=== PATIENT | male | born 1975 | race Caucasian/White ===

== ENCOUNTER 2016-10-17 13:27 | Inpatient (IN) | payer OTHER ==
[2016-10-17] VITALS (19 sets, daily range): BP systolic 102–144; BP diastolic 54–87
[~2016-10-17] VITALS: Ht 188 cm; Wt 117.9 kg
--- NOTE | ~2016-10-17 | EEG ---
[facility] [place] [address] ELECTROENCEPHALOGRAM Name: SHEFALI HOLGUIN Room #: 251-P [facility] IN M.R.#: [id number] Admission: 10/17/16 Attend Phys: Abdullahi Morgan MD Discharge: 10/20/16 Date of : 73 Report #: [id number] THIS REPORT FOR: //name// CC: SAÚL physician/PCP Abdullahi Morgan DATE OF SERVICE: 10/18/2016 This patient is being evaluated for the possibility of seizure. EEG was done by placing the electrodes by standard 10-20 system of electrode placement. Both referential and sequential montages were used for recording. Background activity in this patient's EEG is about 8 Hz and 15 microvolts. It is a symmetrical activity. The patient went to sleep and that is associated with bilaterally symmetrical sleep spindle and vertex sharp waves. Throughout the record, no active epileptiform activity was noticed. IMPRESSION: This patient's EEG is intermixed with moderate amount of slowing on both sides. That is a nonspecific abnormality, which can occur with encephalopathy, dementia, effect of psychotropic medication, etc. No active epileptiform activity was noticed during this record. Thank you very much for this referral. <ELECTRONICALLY SIGNED> By: Mayank Arellano MD 10/21/16 2054 0817 0825 Mayank Arellano MD /nt
--- NOTE | ~2016-10-17 | S ---
[facility] [address] [place] [address] SURGICAL PATH RPT PROCEDURE Name: PIERRE HOLGUIN Room #: 251-P DIS IN M.R.#: [id number] Admission: 10/17/16 Date of : 73 Discharge: 10/20/16 Report #: [id number] Path Case #: [id number] PATHOLOGY REPORT COLLECTION DATE: 10/18/2016 RECEIVED DATE: 10/18/2016 SUBMITTING PHYS: Dr. Godfrey Liriano OTHER PHYS: Dr. Eddie Fernando ADDENDUM REPORT (Order Date: 10/20/2016 09:07) ADDENDUM COMMENT: This addendum is issued to document well controlled GMS special stain performed on block B1 which shows no definite fungal elements. The originally rendered diagnosis remains unchanged. (IUV:all; d/t: 10/20/2016) Professional services performed by [facility] at [facility] [address], [place] [address] Technical services performed by [facility] at [address] [place] [address], [address] [place] [address]. ELECTRONICALLY SIGNED BY: Kelly Lyons M.D. DATE/TIME:10/20/2016 09:27 SPECIMEN(S) RECEIVED: A.Gastritis bx B.Esophageal bx * * * * * * * * * * * * FINAL DIAGNOSIS: A. Gastric mucosa, gastritis, endoscopic biopsy: - Moderate reactive gastropathy. - Negative for intestinal metaplasia or atrophy. - Negative for Helicobacter pylori. B. Gastroesophageal mucosa, esophagus, endoscopic biopsy: - Moderate acute esophagitis with fragments of fibrinopurulent material consistent with ulceration. - Gastric-type mucosa with moderate acute and chronic inflammation. - Negative for intestinal metaplasia or dysplasia. COMMENT: A GMS fungal special stain is performed on block B, and the results of this will be reported in an addendum to follow. (IUV:mgr; d/t: 10/19/16) [facility] [address] [place] [address] SURGICAL PATH RPT PROCEDURE Name: PIERRE HOLGUIN Room #: 251-P [facility] IN M.R.#: [id number] Admission: 10/17/16 Date of : 73 Discharge: 10/20/16 Report #: [id number] Path Case #: [id number] PATHOLOGIST: Kelly Lyons M.D. REPORT ELECTRONICALLY SIGNED BY: Kelly Lyons M.D. DATE/TIME: 10/19/2016 15:02 * * * * * * * * * * * * GROSS PATHOLOGY: A. Received in formalin labeled "Pierre Barksdale and gastritis," are 5 segments of vasquez soft tissue measuring 1.2 x 0.4 x 0.3 cm in aggregate dimensions and ranging from 0.2 to 0.5 cm in maximum dimension. The specimen is submitted entirely in cassette A1. B. Received in formalin labeled "Pierre Barksdale and esophagus bx," are 3 segments of vasquez soft tissue measuring 1.2 x 0.2 x 0.2 cm in aggregate dimensions and ranging from 0.2 to 0.7 cm in maximum dimension. The specimen is submitted entirely in cassette B1. (TTL; 10/18/2016) CLINICAL HISTORY: Gastritis, esophagitis INITIAL CPT CODE(S): A; 70899, 17953 B; 35982, 26589 Professional services performed by [facility] at [place] [address], [place] [address] Technical services performed by [facility] at [address] [place] [address], [address] [address]. [facility] [address] [place] [address] PHONE: [phone] DIRECTOR: Black Avilez M.D. * * * END OF REPORT * * *
--- NOTE | ~2016-10-17 | HC ---
[facility] [place] [address] CONSULTATION Name: SHEFALI HOLGUIN Room #: 251-P ADM IN M.R.#: [id number] Admission: 10/17/16 Attend Phys: Abdullahi Morgan MD Discharge: Date of : 73 Report #: [id number] THIS REPORT FOR: //name// CC: SAÚL physician/PCP Abdullahi Morgan DATE OF SERVICE: 10/18/2016 HISTORY OF PRESENT ILLNESS: This gentleman was admitted with significant alcohol intoxication. He had recently moved here from [place] and away from his support system, fell under increased stress and unfortunately relapsed with alcohol. He has a lot of regret over this now. He had made some suicidal statements earlier, but he notes he was just feeling a wave of hopelessness at that time and denies that he has any intent or plan to harm himself. He is hopeful that he has not blown things with the job opportunity. He endorses that he had a couple of years sobriety prior to this relapse, which lasted approximately 3 days. He does have a history of complicated withdrawal including seizures. PAST PSYCHIATRIC HISTORY: The patient has been under psychiatric care in the past. About a year ago, he was started on the combination of gabapentin, sertraline and lithium. He notes it ended up being a little bit too strong of a cocktail "I was lying in bed and drooling on myself." He denies significant tremor on the lithium. He certainly has periods of severe depression and notes "suddenly the bottom can drop out." I had some difficulty eliciting specific history of manic episodes. FAMILY HISTORY: There is depression and mood disorder in the family. It sounds like father is a social drinker, but not alcohol dependent. PAST MEDICAL HISTORY: Increased liver transaminases, hematemesis and esophagitis. ALLERGIES: CODEINE. SOCIAL HISTORY: Long history of alcoholism, has worked in the automotive motorcycle industry in the past. He notes that because of his alcohol use "I lost everything." Also seems there was a breakup and girlfriend left him for a friend. Over the last couple of years, he had been sober and participated in [facility] as well as some other ministry approaches to sobriety. 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 He notes that he felt his sobriety was fairly strong that it was a good point to take a break from the [place] [facility] ministry and focus on more of a carrier "so I can also rebuild my life financially." MENTAL STATUS EXAM: male, multiple tattoos, depressed mood, [facility] [address] [place] [address] CONSULTATION Name: SHEFALI HOLGUIN Room #: 251-P [facility] IN M.R.#: [id number] Admission: 10/17/16 Attend Phys: Abdullahi Morgan MD Discharge: Date of : 73 Report #: [id number] restricted affect, normal spontaneous speech, he is articulate, no formal thought disorder, no hallucinations, no delusions, no suicidal intent or plan and no homicidal ideation. Insight and judgment fair. DIAGNOSES: AXIS I: Major depressive disorder, recurrent, severe, rule out bipolar affective disorder. Alcohol use disorder. AXIS II: Deferred. AXIS III: Elevated liver transaminases and hematemesis. AXIS IV: Moderately severe. AXIS V: 40. RECOMMENDATIONS: I am going to restart sertraline and gabapentin. He should continue the alcohol detoxification with lorazepam, provided supportive therapy and substance abuse counseling. He is going to try to reconnect with his friends in [facility]. At this point, he is motivated to try to stay in the [facility] and follow forward the initial plan. <ELECTRONICALLY SIGNED> By: Dipesh Bryant MD 10/19/16 1253 1348 1543 Dipesh Bryant MD /nt
--- NOTE | ~2016-10-17 | P ---
[facility] [place] [address] PROCEDURE REPORT Name: HOLGUINSHEFALI Room #: 251-P [facility] IN M.R.#: [id number] Admission: 10/17/16 Attend Phys: Abdullahi Morgan MD Discharge: Date of : 73 Report #: [id number] THIS REPORT FOR: //name// CC: SAÚL physician/PCP Abdullahi Morgan DATE OF SERVICE: 10/18/2016 BRIEF HISTORY: The patient is a 41-year-old male with a known history of alcohol abuse and alcoholism who had a recent relapse who presented with a markedly elevated alcohol level. He has had nausea and vomiting. He also had hematemesis, but he has not had bloody stools. In addition, he complains of severe upper abdominal pain. He has not been noted to have liver disease in the past per his report, he has not been noted to have cirrhosis. PREOPERATIVE DIAGNOSES: Hematemesis, abdominal pain, and alcohol abuse. POSTOPERATIVE DIAGNOSES: 1. Severe grade D erosive esophagitis. 2. Small hiatus hernia. 3. Diffuse erythematous gastritis, nonbleeding. MEDICATIONS: Deep sedation with propofol per anesthesia. SPECIMENS: 1. Biopsies of gastritis. 2. Biopsies esophagitis. ESTIMATED BLOOD LOSS: 3 mL. PROCEDURE: EGD with biopsy. FINDINGS: Prior to propofol sedation, procedure of upper endoscopy discussed with the patient, all potential risks, benefits, and complications. He indicates he understands and desires to proceed. With the patient in left lateral decubitus position, Fuji video endoscope was inserted in the cervical esophagus under direct vision without difficulty. Examination of this organ through its entire length revealed severe esophagitis involving the entire circumference of the distal esophagus. However, there was no blood or evidence of active bleeding. As best I could see, I did not find evidence of esophageal varices. A definite stricture was not seen, although the entire circumference of the GE junction was . Intermittently, a small hiatus hernia was seen. The pylorus, duodenal bulb and postbulbar sweep were inspected and he is noted to have some erythema, but no ulcers, erosions, or blood. Upon retroflexion, no mass lesions were seen. Biopsies obtained to [address] [address] PROCEDURE REPORT Name: SHEFALI HOLGUIN Room #: 251-P [facility] IN ..#: [id number] Admission: 10/17/16 Attend Phys: Abdullahi Morgan MD Discharge: Date of : 73 Report #: [id number] evaluate for H. pylori. The pylorus, duodenal bulb and postbulbar sweep were inspected and noted to be within normal limits. At that point, the scope was slowly withdrawn and careful circumferential views confirmed the above findings. The patient tolerated the procedure well. DISPOSITION: The patient with alcohol abuse who had a recent relapse. He has severe esophagitis likely in part related to vomiting. He also may have ongoing reflux disease, which has not been recognized. We will place him on twice daily PPI. Also, sucralfate suspension. Ultrasound earlier today revealed fatty liver. Again, varices were not seen on this examination. He does have a mild microcytosis. Iron studies are pending. If there is evidence of iron deficiency anemia, colonoscopy would be a consideration as well. <ELECTRONICALLY SIGNED> By: Godfrey Liriano MD 10/20/16 1225 1006 1054 Godfrey Liriano MD /nt
--- NOTE | ~2016-10-17 | D ---
[facility] [place] [address] DISCHARGE SUMMARY Name: SHEFALI HOLGUIN Room #: 251-P ADM IN M.R.#: [id number] Admission: 10/17/16 Attend Phys: Abdullahi Morgan MD Discharge: Date of : 73 Report #: [id number] THIS REPORT FOR: //name// CC: SAÚL physician/PCP Abdullahi Morgan DATE OF SERVICE: 10/19/2016 After coyp-jy-ayne encounter, I did see the patient and examined him on the day of discharge, 10/19/2016. DISCHARGE DIAGNOSES: 1. Alcohol intoxication. 2. Increased liver function tests. 3. Alcoholic pancreatitis. 4. Hematemesis, status post esophagogastroduodenoscopy. 5. Grade D esophagitis. 6. Hiatal hernia. 7. Gastritis. 8. History of seizure withdrawal. 9. Hypokalemia, resolved. 10. Abdominal pain, resolved. 11. Anxiety. DISCHARGE MEDICATIONS: See discharge summary. HOSPITAL COURSE: The patient was admitted to the hospital secondary to abdominal pain. He was in alcoholic intoxication at that point. He was complaining of abdominal pain, nausea, vomiting and bloody vomiting. GI was consulted and also a consultation for Psychiatry was put in. The patient was thought to be suicidal, but he was cleared by Psychiatry and only diagnosis was major depressive disorder and bipolar. He underwent EGD by GI, and they discovered grade D esophagitis, gastritis and hiatal hernia, and started him on PPI. In the same time, Psychiatry cleared him today for discharge, and they recommended him to be on sertraline and gabapentin. The patient is stable and he is leaving on the decided medicines. <ELECTRONICALLY SIGNED> By: Sylvia Ambrose MD 10/20/16 1709 1545 1707 Sylvia Ambrose MD /nt
--- NOTE | ~2016-10-17 | EKG ---
[place] [address] [facility] [place] [address] ELECTROCARDIOGRAM REPORT Name: HOLGUINSHEFALI Room #: 170-8 ADM IN M.R.#: [id number] Admission: 10/17/16 Attend Phys: Abdullahi Morgan MD Discharge: Date of : 73 Report #: [id number] THIS REPORT FOR: //name// [facility] ED Test Date: 2016-10-17 Test Time: 13:37:14 Pat Name: SHEFALI HOLGUIN Department: Room: 170 Gender: M Ballistician: JOHN : 1975 Requested By: Nelia Paredes Order Number: [id number] MD: Bruce Ellis Measurements Intervals [place] Rate: 95 P: 56 [place]: 150 QRS: 16 QRSD: 90 T: 30 QT: 347 QTc: 436 Interpretive Statements Sinus rhythm Probable left atrial enlargement ST elev, probable normal early repol pattern No previous ECG available for comparison Electronically Signed On 10-17-2016 15:19:48 WOOD WEB WEAVING MACHINE OPERATOR by Bruce Ellis [email or web address] <ELECTRONICALLY SIGNED> By: Bruce Ellis MD 10/17/16 1519 36 36 Bruce Ellis MD /ION
[2016-10-17 13:54] LABS: ABSOLUTE NEUTROPHILS 4.7 thou/uL (1.4-8.2); BASOPHILS 0.3 % (0.0-2.0); EOSINOPHILS 0.1 % (0.0-3.0); HEMATOCRIT 39.3 % (42.0-52.0); HEMOGLOBIN 13.4 gm/dL (14.0-18.0); LYMPHOCYTES 17.2 % (24.0-44.0); MCH 26.8 pg (26.0-34.0); MCV 78.8 fL (80.0-100.0); MONOCYTES 10.3 % (1.0-8.0); PLATELET COUNT 247 thou/uL (150-400); POLYS 72.1 % (36.0-66.0); RBC 4.98 mil/uL (4.50-6.00); RDW 15.4 % (10.5-14.5); WBC 6.6 thou/uL (4.0-11.0)
[2016-10-17 13:55] LABS: MANUAL DIFF NO
[2016-10-17 14:06] LABS: ANION GAP 9 mmol/L (7-16); APTT 25.7 Seconds (24.5-32.8); BUN 5 mg/dL (7-18); CALCIUM 8.2 mg/dL (8.5-10.1); CHLORIDE 96 mmol/L (98-107); CO2 29 mmol/L (21-32); CREATININE 0.9 mg/dL (0.6-1.3); GLUCOSE 114 mg/dL (70-99); POTASSIUM 4.4 mmol/L (3.5-5.1); SODIUM 134 mmol/L (136-145)
[2016-10-17 14:12] LABS: ALKALINE PHOSPHATASE 77 U/L (46-116); SGOT 124 U/L (15-37); SGPT 100 U/L (30-65); TOTAL BILIRUBIN 0.6 mg/dL (<0.1-1.0); TOTAL PROTEIN 6.3 g/dL (6.4-8.2); TROPONIN-I < 0.04 ng/mL (<0.04-0.07)
[2016-10-17 16:14] LABS: URINE BILIRUBIN NEGATIVE (Negative); URINE BLOOD TRACE (Negative); URINE COLOR YELLOW; URINE GLUCOSE-RANDOM* NEGATIVE (Negative); URINE KETONES NEGATIVE (Negative); URINE LEUKOCYTES-REFLEX NEGATIVE (Negative); URINE PROTEIN (DIPSTICK) NEGATIVE (Negative); URINE SPECIFIC GRAVITY <= 1.005 (1.003-1.035); URINE UROBILINOGEN 0.2 E.U./dl (0.2-1.0)
[2016-10-17 20:10] LABS: MAGNESIUM 1.9 mg/dL (1.8-2.4); PHOSPHORUS 1.8 mg/dL (2.5-4.9)
[2016-10-18] VITALS (63 sets, daily range): BP systolic 104–169; BP diastolic 58–104
[2016-10-18 04:36] LABS: PROTIME 10.7 Seconds (9.3-11.4)
[2016-10-18 04:39] LABS: ALBUMIN 2.8 g/dL (3.4-5.0); DIRECT BILIRUBIN 0.2 mg/dL (<0.1-0.3); TOTAL BILIRUBIN 0.8 mg/dL (<0.1-1.0); TOTAL PROTEIN 5.5 g/dL (6.4-8.2)
[2016-10-18 06:08] LABS: FREE T4 1.04 ng/dL (0.82-1.77); TSH 1.16 uIU/mL (0.450-4.500)
[2016-10-18 15:07] LABS: % SATURATION 48 % (15-55); IRON 124 ug/dL (38-169); TIBC 257 ug/dL (250-450); UIBC 133 ug/dL (111-343)
[2016-10-18 16:09] LABS: IgG 520 mg/dL (700-1600)
[2016-10-18 19:08] LABS: FERRITIN 247 ng/mL (30-400)
[2016-10-18 22:09] LABS: HEPATITIS C VIRUS AB <0.1 (0.0-0.9)
[2016-10-19] VITALS (22 sets, daily range): BP systolic 125–146; BP diastolic 74–97
[2016-10-19 04:02] LABS: ABSOLUTE NEUTROPHILS 3.3 thou/uL (1.4-8.2); BASOPHILS 0.8 % (0.0-2.0); EOSINOPHILS 1.7 % (0.0-3.0); HEMATOCRIT 36.3 % (42.0-52.0); HEMOGLOBIN 12.1 gm/dL (14.0-18.0); LYMPHOCYTES 28.8 % (24.0-44.0); MCH 27.1 pg (26.0-34.0); MCHC 33.4 % (28.0-37.0); MCV 81.3 fL (80.0-100.0); MONOCYTES 8.4 % (1.0-8.0); PLATELET COUNT 186 thou/uL (150-400); POLYS 60.3 % (36.0-66.0); RBC 4.47 mil/uL (4.50-6.00); RDW 14.8 % (10.5-14.5); WBC 5.4 thou/uL (4.0-11.0)
[2016-10-19 04:06] LABS: MANUAL DIFF NO
[2016-10-19 04:17] LABS: ALBUMIN 2.7 g/dL (3.4-5.0); CALCIUM 8.3 mg/dL (8.5-10.1); CREATININE 0.7 mg/dL (0.6-1.3); PHOSPHORUS 3.4 mg/dL (2.5-4.9); TOTAL BILIRUBIN 0.8 mg/dL (<0.1-1.0); TOTAL PROTEIN 5.6 g/dL (6.4-8.2)
[2016-10-19 08:41] LABS: AMP/METHAMP Negative (Negative); BARBITURATES Negative (Negative); BENZODIAZEPINES Negative (Negative); COCAINE Negative (Negative); METHADONE Negative (Negative); OPIATES Negative (Negative); PCP Negative (Negative); THC Negative (Negative)
[2016-10-19 13:08] LABS: CERULOPLASMIN 19.1 mg/dL (16.0-31.0)
[2016-10-20] VITALS (18 sets, daily range): BP systolic 119–151; BP diastolic 72–102
[2016-10-20 07:27] LABS: HEMATOCRIT 36.9 % (42.0-52.0); HEMOGLOBIN 12.4 gm/dL (14.0-18.0); MCH 27.1 pg (26.0-34.0); MCHC 33.5 % (28.0-37.0); MCV 80.8 fL (80.0-100.0); PLATELET COUNT 211 thou/uL (150-400); RBC 4.56 mil/uL (4.50-6.00); RDW 15.2 % (10.5-14.5); WBC 5.8 thou/uL (4.0-11.0)
[2016-10-20 07:29] LABS: MANUAL DIFF YES
[2016-10-20 07:59] LABS: ALBUMIN 2.6 g/dL (3.4-5.0); CALCIUM 8.7 mg/dL (8.5-10.1); CREATININE 0.8 mg/dL (0.6-1.3); MAGNESIUM 1.9 mg/dL (1.8-2.4); POTASSIUM 3.7 mmol/L (3.5-5.1); TOTAL BILIRUBIN 0.4 mg/dL (<0.1-1.0); TOTAL PROTEIN 5.6 g/dL (6.4-8.2)
[2016-10-20 08:32] LABS: ABSOLUTE NEUTROPHILS 3.2 thou/uL (1.4-8.2); TOTAL CELL COUNT 100
[2016-10-20 08:33] LABS: ANISOCYTOSIS SLIGHT; LARGE PLATELETS FEW; MACROCYTES SLIGHT; POLYCHROMASIA SLIGHT
[2016-10-20] MEDS ORDERED: NEURONTIN600 MG PO (15:48)
[2016-10-20] MEDS ORDERED: PROTONIX40 M2 PO (15:48)
[2016-10-20] MEDS ORDERED: SERTRALINE HCL25 M1 PO (15:48)
[2016-10-20] MEDS ORDERED: VITAMIN B-1100 M2 PO (15:48)
== END 2016-10-20 17:20 | disposition home or self-care (01) | DRG 896 ==
LOC: ER 13:27 → EROBS 14:29 → ICU 14:29
PROVIDERS: Emergency Medicine; Family Medicine; Hospitalist; Nurse Practitioner Adult Health; Specialist
DX: F10.129 Alcohol abuse with intoxication, unspecified (principal); K85.20 Alcohol induced acute pancreatitis without necrosis or infection; K92.0 Hematemesis; Y90.8 Blood alcohol level of 240 mg/100 ml or more; F31.9 Bipolar disorder, unspecified; Z88.6 Allergy status to analgesic agent; R79.89 Other specified abnormal findings of blood chemistry; K44.9 Diaphragmatic hernia without obstruction or gangrene; G31.2 Degeneration of nervous system due to alcohol; K29.70 Gastritis, unspecified, without bleeding; K21.0 Gastro-esophageal reflux disease with esophagitis; E87.6 Hypokalemia; F41.9 Anxiety disorder, unspecified; Z81.8 Family history of other mental and behavioral disorders
CPT/HCPCS: 10203; 62110; 62900

== ENCOUNTER 2016-10-24 12:00 | Inpatient (IN) | payer OTHER ==
[~2016-10-24] VITALS: Ht 190.5 cm; Wt 116.1 kg
--- NOTE | ~2016-10-24 | HC ---
[facility] [place] [place] [address] CONSULTATION Name: SHEFALI HOLGUIN Room #: 464-P [facility] IN M.R.#: [id number] Admission: 10/24/16 Attend Phys: Arti Saba Discharge: 10/27/16 Date of : 73 Report #: [id number] THIS REPORT FOR: //name// CC: SAÚL physician/PCP Arti Saba DATE OF SERVICE: 10/25/2016 HISTORY OF PRESENT ILLNESS: This gentleman was admitted with alcohol intoxication. He had recently moved from [place] to [place]. He was hospitalized here for a few days after alcohol intoxication. He was discharged and was supposed to be driving to [place], but apparently "that fell through." He was re-admitted when found consciousness in his room by his ex-. He regrets his behavior and is not sure what he is going to do, "I need placement. I have never been homeless before." PAST PSYCHIATRIC HISTORY: The patient does have a history of depression and mood disorder. He had been on lithium before. Had also been on gabapentin and Zoloft before. We restarted the gabapentin and the Zoloft at discharge, but he was unable to take. ALLERGIES: CODEINE. CURRENT MEDICATIONS: He is on Librium detox secondary to alcoholism/alcohol use disorder. MENTAL STATUS EXAMINATION: male, casually dressed, depressed mood, restricted affect, decreased speech. No suicidal ideation, no homicidal ideation, no hallucinations and no delusions. Insight and judgment limited. DIAGNOSES: AXIS I: Major depressive disorder, recurrent, severe, rule out bipolar affective disorder, alcohol use disorder. AXIS II: Deferred. AXIS III: Secondary to alcohol use disorder. AXIS IV: Severe. AXIS V: 40. RECOMMENDATIONS: 1. He is not actively suicidal or homicidal. 2. We will restart gabapentin and sertraline. 3. May be a candidate for medication for alcohol craving. [facility] [address] [place] [address] CONSULTATION Name: SHEFALI HOLGUIN Room #: 464-P DIS IN .R.#: [id number] Admission: 10/24/16 Attend Phys: Arti Saba Discharge: 10/27/16 Date of : 73 Report #: [id number] 4. Would certainly benefit from some type of sober living or even rehab, but financial/insurance issues may limit options. <ELECTRONICALLY SIGNED> By: Dipesh Bryant MD 11/01/16 1412 1626 1748 Dipesh Bryant MD /nt
--- NOTE | ~2016-10-24 | EKG ---
[address] [address] ELECTROCARDIOGRAM REPORT Name: SHEFALI HOLGUIN Room #: 170-7 ADM IN M.R.#: [id number] Admission: 10/24/16 Attend Phys: Arti Saba Discharge: Date of : 73 Report #: [id number] THIS REPORT FOR: //name// [facility] ED Test Date: 2016-10-24 Test Time: 12:55:16 Pat Name: SHEFALI HOLGUIN Department: Room: 170 Gender: M Lathing Supervisor: Edgardo ARELLANO : 1975 Requested By: Gabby Casas Order Number: [id number] MD: Bruce Ellis Measurements Intervals [place] Rate: 103 P: 41 [place]: 150 QRS: 31 QRSD: 167 T: 17 QT: 344 QTc: 451 Interpretive Statements Sinus tachycardia Nonspecific intraventricular conduction delay Probable anterolateral infarct, acute Baseline wander in lead(s) V1 Electronically Signed On 10-24-2016 17:25:01 TONGUE STITCHER by Bruce Ellis [email or web address] <ELECTRONICALLY SIGNED> By: Bruce Ellis MD 10/24/16 1725 D: 015 1255 Bruce Ellis MD /ION
[~2016-10-24 12:00] MED LIST: NEURONTIN600 MG PO; PROTONIX40 M2 PO; SERTRALINE HCL25 M1 PO; VITAMIN B-1100 M2 PO
[2016-10-24 12:14] VITALS: BP 144/101
[2016-10-24 12:43] LABS: ABSOLUTE NEUTROPHILS 3.8 thou/uL (1.4-8.2); BASOPHILS 0.6 % (0.0-2.0); EOSINOPHILS 0.4 % (0.0-3.0); HEMATOCRIT 41.1 % (42.0-52.0); LYMPHOCYTES 29.9 % (24.0-44.0); MCH 27.3 pg (26.0-34.0); MCHC 34.1 % (28.0-37.0); MCV 80.1 fL (80.0-100.0); MONOCYTES 11.7 % (1.0-8.0); PLATELET COUNT 288 thou/uL (150-400); POLYS 57.4 % (36.0-66.0); RBC 5.13 mil/uL (4.50-6.00); WBC 6.6 thou/uL (4.0-11.0)
[2016-10-24 12:52] LABS: MANUAL DIFF NO
[2016-10-24 12:54] LABS: CALCIUM 8.7 mg/dL (8.5-10.1); CREATININE 0.9 mg/dL (0.6-1.3); POTASSIUM 3.6 mmol/L (3.5-5.1)
[2016-10-24 12:59] LABS: ALBUMIN 3.7 g/dL (3.4-5.0); TOTAL BILIRUBIN 0.5 mg/dL (<0.1-1.0); TOTAL PROTEIN 7.3 g/dL (6.4-8.2)
[2016-10-24 14:35] LABS: AMP/METHAMP Negative (Negative); BARBITURATES Negative (Negative); BENZODIAZEPINES Negative (Negative); COCAINE Negative (Negative); METHADONE Negative (Negative); OPIATES Negative (Negative); PCP Negative (Negative); THC Negative (Negative)
[2016-10-24 17:37] VITALS: BP 127/76
[2016-10-24 19:00] VITALS: BP 128/80
[2016-10-24 23:45] VITALS: BP 133/64
[2016-10-25 04:48] VITALS: BP 148/90
[2016-10-25 07:35] VITALS: BP 112/64
[2016-10-25 11:19] VITALS: BP 144/99
[2016-10-25 15:51] VITALS: BP 143/102
[2016-10-25 19:35] VITALS: BP 119/69
[2016-10-26 05:13] VITALS: BP 135/73
[2016-10-26 06:21] LABS: CALCIUM 8.8 mg/dL (8.5-10.1); CREATININE 0.9 mg/dL (0.6-1.3); PHOSPHORUS 3.8 mg/dL (2.5-4.9); POTASSIUM 3.4 mmol/L (3.5-5.1)
[2016-10-26 07:52] VITALS: BP 139/99
[2016-10-26 12:25] VITALS: BP 108/80
[2016-10-26 16:15] VITALS: BP 95/67
[2016-10-26 19:09] VITALS: BP 122/84
[2016-10-27 05:11] VITALS: BP 107/60
[2016-10-27 08:00] VITALS: BP 112/63
[2016-10-27] MEDS ORDERED: CHLORDIAZEPOXID25 M1 PO (10:58)
[2016-10-27] MEDS ORDERED: VITAMIN B-1100 M2 PO (10:58)
[2016-10-27] MEDS ORDERED: NEURONTIN 300300 M1 PO (10:58)
[2016-10-27] MEDS ORDERED: SERTRALINE HCL50 MG PO (10:58)
[2016-10-27 11:57] VITALS: BP 112/63
[2016-10-27 12:00] VITALS: BP 121/73
== END 2016-10-27 17:01 | disposition home or self-care (01) | DRG 897 ==
LOC: ER 12:00 → EROBS 14:06 → 4W 14:06 → EROBS 17:39 → 4W 17:49
PROVIDERS: Emergency Medicine; Hospitalist
DX: F10.129 Alcohol abuse with intoxication, unspecified (principal); F33.9 Major depressive disorder, recurrent, unspecified; F41.9 Anxiety disorder, unspecified; Y90.9 Presence of alcohol in blood, level not specified; Z88.6 Allergy status to analgesic agent; Z98.890 Other specified postprocedural states; Z91.5 Personal history of self-harm; Z79.899 Other long term (current) drug therapy
CPT/HCPCS: 10045